=== PATIENT | male | born 1970 | race Caucasian/White ===

== ENCOUNTER 2022-02-15 20:41 | Emergency (ER) | payer OTHER ==
[2022-02-15] MEDS ORDERED: Ketorolac Tromethamine 30 MG/ML VIAL ONE (22:09)
[2022-02-15] MEDS ORDERED: Metoclopramide HCl 10 MG/2 ML VIAL ONE (22:10)
== END 2022-02-15 22:56 | disposition home or self-care (01) ==
LOC: CSHERS 20:41
DX: R51.9 Headache, unspecified (principal)
CPT/HCPCS: 70450; 96374; 96375; J1885; J2765

== ENCOUNTER 2024-02-24 12:54 | Outpatient (CLI) | payer OTHER | END 2024-02-24 12:55 | disposition home or self-care (01) | LOC: CSHMAMMO 12:54 | PROVIDERS: ATTEND Obstetrics & Gynecology | DX: Z12.31 Encounter for screening mammogram for malignant neoplasm of breast (principal); Z98.82 Breast implant status | CPT/HCPCS: 77063; 77067 ==

== ENCOUNTER 2025-04-18 00:55 | Emergency (ER) | payer OTHER ==
[2025-04-18] MEDS ORDERED: Ondansetron PF 4 MG/2 ML Vial ONE (01:50)
[2025-04-18] MEDS ORDERED: Ketorolac Tromethamine 30 MG (1 mL) VIAL ONE (01:50)
[2025-04-18 01:56] LABS: #Basophils 0.07 10x3/uL (0.0-0.2); #Eosinophils 1.20 10x3/uL (0.0-0.5); #Monocytes 0.83 10x3/uL (0.0-1.1); #Neutrophils 9.49 10x3/uL (1.5-8.4); %Basophils 0.5 % (0.0-2.0); %Eosinophils 8.5 % (0.0-6.0); %Lymphocytes 17.2 % (18.0-47.0); %Monocytes 5.9 % (0.0-10.0); %Neutrophils 67.6 % (40.0-75.0); Hematocrit 36.1 % (34.9-44.5); Hemoglobin 11.6 g/dL (12.0-15.5); Mean Corpuscular Hemoglobin 30.1 pg (27.0-33.0); Mean Corpuscular Volume 93.8 fL (81.6-98.3); Platelet Count 330 10x3/uL (150-450); Red Blood Cell (RBC) Count 3.85 10x6/uL (3.90-5.03); White Blood Cell (WBC) Count 14.04 10x3/uL (3.5-10.5)
[2025-04-18 02:30] LABS: ALT (SGPT) 35 U/L (Less than 34); AST (SGOT) 41 U/L (11-34); Albumin 3.9 g/dL (3.1-4.5); Alkaline Phosphatase 75 U/L (40-110); Anion Gap 18 mmol/L (10-20); BUN (Urea Nitrogen) 22 mg/dL (9.8-20.1); Bilirubin, Total 0.4 mg/dL (0.3-1.2); Calc. Creatinine Clearance 0 mL/min (70-130); Calcium 8.7 mg/dL (7.8-10.44); Carbon Dioxide 20 mmol/L (22-29); Chloride 104 mmol/L (98-107); Globulin 3.1 g/dL (2.4-3.5); Glucose 90 mg/dL (70-105); Lipase 55 U/L (8-78); Potassium 4.2 mmol/L (3.5-5.1); Sodium 138 mmol/L (136-145)
[2025-04-18 02:42] LABS: BHCG - Serum Negative (NEGATIVE); Pregs Control Background? CLEAR/WHITE (CLR/WHITE); Pregs Control Bar Appear? YES (CONTROL BAR)
[2025-04-18 03:45] LABS: Glucose, Urine (Dipstick) Normal (Negative); Leukocyte Negative (Negative); Protein, Urine (Dipstick) Negative (Neg-Trace); Specific Gravity, Urine 1.010 (1.005-1.030)
[2025-04-18 03:53] LABS: Bacteria/HPF Rare-Few HPF (None Seen); CAUTI Indications for Culture Pelvic or flank pain; RBC/HPF 0-3 HPF (0-3); WBC/HPF 0-3 HPF (0-3)
[2025-04-18 03:54] LABS: Urine Culture Reflex No No
== END 2025-04-18 04:32 | disposition home or self-care (01) ==
LOC: CSHERS 00:55
DX: N17.9 Acute kidney failure, unspecified (principal); N23 Unspecified renal colic; R94.5 Abnormal results of liver function studies
CPT/HCPCS: 80053; 81001; 83690; 84703; 85025; 87086; 96374; 96375; 96376; J1885; J2270; J2405